=== PATIENT | male | born 1965 ===

== ENCOUNTER → 2020-07-02 14:33 | Outpatient (CLI) | payer OTHER | END | disposition home or self-care (01) | LOC: LAB 14:33 | PROVIDERS: ATTEND Emergency Medicine Pediatric Emergency Medicine | DX: Z03.818 Encounter for observation for suspected exposure to other biological agents ruled out (principal) ==

== ENCOUNTER 2020-07-09 09:45 | Outpatient (CLI) | payer OTHER | END 2020-07-09 10:14 | disposition home or self-care (01) | LOC: LAB 09:45 | DX: Z03.818 Encounter for observation for suspected exposure to other biological agents ruled out (principal) ==

== ENCOUNTER 2020-07-10 08:20 | Outpatient (CLI) | payer OTHER | END 2020-07-10 19:00 | disposition home or self-care (01) | LOC: LAB 08:20 | DX: Z03.818 Encounter for observation for suspected exposure to other biological agents ruled out (principal) ==